=== PATIENT | female | born 1995 | race Hispanic/Latino ===

== ENCOUNTER 2017-05-28 10:24 | Emergency (ER) | payer OTHER | END 2017-05-28 11:44 | disposition home or self-care (01) | LOC: M ED 10:24 | DX: S06.0X0A Concussion without loss of consciousness, initial encounter (principal); W01.198A Fall on same level from slipping, tripping and stumbling with subsequent striking against other object, initial encounter; Y92.139 Unspecified place military base as the place of occurrence of the external cause; Y93.89 Activity, other specified; Y99.1 Military activity | CPT/HCPCS: 70450 ==